=== PATIENT | female | born 1985 | race Caucasian/White ===

== ENCOUNTER 2016-06-21 17:20 | Inpatient (IN) | payer MEDICAID ==
[2016-06-21] MEDS ORDERED: Scopolamine 1.5 MG Transdermal Patch TOP ONE (17:42)
[2016-06-21] MEDS ORDERED: Sodium Chloride 0.9% 10 ML Syringe FLUSH PRN (17:42)
[2016-06-21] MEDS ORDERED: Citric Acid/Sodium Citrate Solution 30 ML Cup PO ONE (17:42)
[2016-06-21] MEDS: Lactated Ringers 1,000 ML IV SCH (18:11)
[2016-06-21] MEDS ORDERED: Citric Acid/Sodium Citrate Solution 30 ML Cup ONE (18:41)
[2016-06-21] MEDS ORDERED: Midazolam 1 MG/ML 2 ML SDV IV ONE (19:00)
[2016-06-21] MEDS ORDERED: Morphine PF 10 MG/10 ML SDV ONE (19:00)
[2016-06-21] MEDS ORDERED: Lactated Ringers 1,000 ML IV ONE (19:00)
[2016-06-21] MEDS ORDERED: ceFAZolin 1 GM Vial IV ONE (19:00)
[2016-06-21] MEDS ORDERED: Bupivacaine 0.75%/D5W 2 ML Amp ISPINAL ONE (19:00)
[2016-06-21] MEDS ORDERED: Ondansetron 4 MG/2 ML SDV IVPUSH ONE (19:00)
[2016-06-21] MEDS ORDERED: Oxytocin 10 Units/1 ML SDV IV ONE (19:00)
[2016-06-21] MEDS ORDERED: ePHEDrine 50 MG/ML SDV IV ONE (19:00)
[2016-06-21] MEDS ORDERED: fentaNYL 100 MCG/2 ML SDV IV ONE (19:00)
[2016-06-21] MEDS ORDERED: Ondansetron 4 MG/2 ML SDV IVPUSH PRN (19:50)
[2016-06-21] MEDS ORDERED: Naloxone 0.4 MG/ML SDV IVPUSH PRN ×3 (20:08→23:30)
[2016-06-21] MEDS ORDERED: ePHEDrine 50 MG/ML SDV IVPUSH PRN (20:08)
[2016-06-21] MEDS ORDERED: diphenhydrAMINE 50 MG/ML SDV IVPUSH PRN ×2 (20:08→23:30)
[2016-06-21] MEDS ORDERED: Ketorolac 15 MG/ML SDV IVPUSH PRN (20:10)
[2016-06-21] MEDS ORDERED: Lactated Ringers 1,000 ML IV SCH (20:15)
[2016-06-21] MEDS ORDERED: Ketorolac 15 MG/ML SDV ONE (23:14)
[2016-06-21] MEDS ORDERED: Morphine 2 MG/ML Syringe IVPUSH PRN (23:30)
[2016-06-21] MEDS ORDERED: Nalbuphine 10 MG/1 ML Vial IVPUSH PRN (23:30)
[2016-06-21] MEDS ORDERED: hydrOXYzine HCl 50 MG/ML SDV IM PRN (23:30)
[2016-06-21] MEDS ORDERED: Naloxone 0.4 MG in Sodium Chloride 0.9% 100 ML IV PRN (23:30)
[2016-06-21] MEDS ORDERED: Promethazine 25 MG/ML SDV IV PRN ×2 (23:30)
[2016-06-21] MEDS ORDERED: Meperidine PF 25 MG/ML Syringe IVPUSH PRN (23:30)
--- NOTE | 2016-06-22 00:45 | OR ---
DATE OF OPERATION: 06/21/2016 OPERATION PERFORMED: Repeat section. INDICATION: Prior section. POSTOPERATIVE DIAGNOSES: 1. Repeat lower uterine segment section. 2. Premature rupture of membranes. WATER QUALITY TESTER: Dr. Cespedes. ANESTHESIA: Regional. PERMIT: Patient accepted the risks and benefits including bleeding, infection, injury, anesthetic risks. She asked us to proceed. PROCEDURE DETAILS: The patient was taken to the OR where the epidural was inserted and found to be adequate. She was draped and prepped in the usual sterile fashion. A Pfannenstiel incision was made along the previous scar, carried to the underlying fascia which was scored in the middle and carried laterally with Coy scissors. The inferior and superior portions were tented with Davi clamps and dissected sharply from the muscle. The muscles were with scalpel and the peritoneum was entered with Metzenbaum scissors. A bladder blade was inserted after stretching and visceral bladder flap of the peritoneum was made. An incision was made around the lower uterine segment, and this was extended laterally by pulling in the caudad cephalad fashion. The baby was delivered atraumatic. Cord was cut and clamped. Cord blood was obtained. The baby was handed to the waiting nurses after suction. After the removal of the placenta, the uterus was exteriorized and cleaned of all blood clots and products of conception. The uterus incision was closed in two layers using #0 Vicryl. There was one stitch of [id number] needed in the middle to achieve adequate hemostasis. After that, the visceral peritoneum was closed with a running #3-0 stitch. The uterus was returned to the maternal abdomen. The gutters were cleaned off blood clots and irrigated thoroughly. The parietal peritoneum was closed in a #2-0 running stitch and the rectus fascia with #0 Vicryl. The subcutaneous tissue was then closed with #3-0 running stitch which was returned to close the skin. Estimated blood loss about 500 mL. The product was a vigorous female infant. She was given 2 g of Ancef before the incision. The count was correct for instruments, laps and sponges x3. /[id number] LESLY/BELLE CHAPARRO
--- NOTE | 2016-06-22 07:34 | PREOP ---
ADMISSION DATE: 06/21/2016 PROCEDURE: Repeat section. ANESTHESIA: Regional. SITES: [facility]. PHYSICIAN OF RECORD: Dr. Chacorta Olmedo and Dr. Addi Gillis. CLINICAL INDICATION: Term intrauterine , previous section. HISTORY OF PRESENT ILLNESS: Kevin Dueñas is a 31-year-old 2, para 1-0-0-1 female, [place], [place] resident, who was seen at [facility] on 06/17/2016, for her obstetrical visit. She is scheduled for repeat section on 06/22/2016, at [facility]. EDC 06/27/2016, placing her at 39+ weeks' gestation. It has been an uncomplicated . Dates are accurate. Satisfactory maternal well being, good behaviors, comfortable dates both by examination clinical dating and ultrasound. MEDICATIONS: Present daily medications include vitamins only. PAST MEDICAL HISTORY: Significant for previous section. She had a previous sinus surgery and wisdom tooth extraction. No other operative procedures, hospitalizations, unusual childhood diseases, major injuries, or fractures. SOCIAL HISTORY: Engaged, [place] resident, previous full-term . Nonsmoker. No alcohol consumption. No illicit drug use. FAMILY HISTORY: Negative for early heart disease, diabetes mellitus, or inheritable cancers. REVIEW OF SYSTEMS: Feeling generally well. Sleep has been a little interrupted, intermittent heart. Mild nausea, bowels have been, good bladder has been fine, and baby has been active. OBJECTIVE: VITAL SIGNS: Stable and comfortable. HEENT: Reveal funduscopic benign. Bright TMs. Clear nasal discharge. Mouth and oropharynx are clear. CHEST: Clear in all lung rosado. HEART: Regular without ectopy or murmur. BREAST: deferred. ABDOMEN: Term gravid, uterus 38 cm vertex presentation. heart tones 134 to 156. Vertex presentation. PELVIC: Deferred. EXTREMITIES: Well perfused. Minimal edema. LABORATORY STUDIES: CBC, type and screen morning of admission. ASSESSMENT: 1. Preop examination for upcoming repeat section. No contraindication. 2. Previous section. 3. Status post sinus surgery. Status post wisdom tooth extraction. 4. Remote smoker. PLAN: Risks, benefits, and expectations were discussed at length. No contraindications, suitable candidate. /[id number] VANNA/BELLE
[2016-06-22] MEDS: Lactated Ringers 1,000 ML IV SCH (08:24)
--- NOTE | 2016-06-22 09:49 | PCM.PNPP ---
- General Info Date of Service: 06/22/16 Functional Status: Reports: pain controlled - Review of Systems General: Reports: No Symptoms HEENT: Reports: no symptoms Pulmonary: Reports: no symptoms Cardiovascular: Reports: No Symptoms Gastrointestinal: Reports: No symptoms Genitourinary: Reports: no symptoms Musculoskeletal: Reports: no symptoms Skin: Reports: no symptoms Neurological: Reports: No Symptoms Psychiatric: Reports: no symptoms - General Info Date of Service: 06/22/16 - Patient Data Vital Signs - most recent: Last Vital Signs Temp 97.8 F 06/22/16 08:35 Pulse 77 06/22/16 08:35 Resp 20 06/22/16 08:35 BP 115/68 06/22/16 08:35 Pulse Ox 100 06/22/16 08:35 Weight - most recent: 107.955 kg I&O - last 24 hours: Intake & Output 06/21/16 06/22/16 06/22/16 22:59 06:59 14:59 Intake Total 452 022 6290 Output Total 450 250 Balance -214 536 0105 Lab Results - last 24 hrs: Laboratory Results - last 24 hr 06/21/16 06/21/16 06/22/16 Range/Units 18:25 18:25 06:52 WBC 9.1 10.4 (4.5-12.0) X10-3/uL RBC 4.19 3.85 (3.23-5.20) x10(6)uL Hgb 11.6 10.5 L (11.5-15.5) g/dL Hct 34.7 32.4 (30.0-51.3) % MCV 82.7 84.3 (80-96) fL MCH 27.8 27.3 L (27.7-33.6) pg MCHC 33.6 32.4 (32.2-35.4) g/dL RDW 13.9 14.0 (11.5-15.5) % Plt Count 160 135 (125-369) X10(3)uL MPV 9.6 9.2 (7.4-10.4) fL Neut % (Auto) 71.3 80.1 (46-82) % Lymph % (Auto) 20.4 13.1 (13-37) % Ida % (Auto) 7.1 6.1 (4-12) % Eos % (Auto) 1 1 (1.0-5.0) % Baso % (Auto) 0 0 (0-2) % Neut # (Auto) 6.5 8.2 (1.6-8.3) # Lymph # (Auto) 1.9 1.4 (0.6-5.0) # Ida # (Auto) 0.6 0.6 (0.0-1.3) # Eos # (Auto) 0.1 0.1 (0.0-0.8) # Baso # (Auto) 0.0 0.0 (0.0-0.2) # Blood Type O POSITIVE Gel Antibody Screen Negative Med Orders - Current: Current Medications Hydrocodone Bitart/Acetaminophen ([place] 325-5 Mg) 1 tab PO Q6H PRN PRN Reason: Breakthrough Pain Diphenhydramine HCl (Benadryl) 25 mg IVPUSH Q6H PRN PRN Reason: Itching or Nausea Last Admin: 06/21/16 22:50 Dose: 25 mg Diphenhydramine HCl (Benadryl) 25 mg IVPUSH ASDIRECTED PRN PRN Reason: PRURITUS Last Admin: 06/21/16 23:43 Dose: 25 mg Ephedrine Sulfate (Ephedrine Sulfate) 5 mg IVPUSH ASDIRECTED PRN PRN Reason: Other Hydroxyzine HCl (Vistaril) 25 - 50 mg IM Q4H PRN PRN Reason: N/V Lactated Ringer's (Ringers, Lactated) 1,000 mls @ 0 mls/hr IV ASDIRECTED MIRIAN PRN Reason: KVO Last Admin: 06/22/16 08:24 Dose: 30 mls/hr Naloxone HCl 0.4 mg/ Sodium (Chloride) 101 mls @ 25 mls/hr IV ASDIRECTED PRN PRN Reason: RESPIRATORY RATE Ibuprofen (Motrin) 600 mg PO Q6H MIRIAN Ketorolac Tromethamine (Toradol) 15 mg IVPUSH Q6H PRN PRN Reason: BREAKTHRU PAIN Stop: 06/26/16 20:09 Last Admin: 06/21/16 23:36 Dose: 15 mg Miscellaneous Information (Remove Patch) 1 ea TRDERM ONETIME ONE Stop: 06/22/16 18:31 Morphine Sulfate (Morphine) 2 mg IVPUSH Q1H PRN PRN Reason: BREAKTHRU PAIN Nalbuphine HCl (Nubain) 10 mg IVPUSH Q1H PRN PRN Reason: PRURITUS Naloxone HCl (Narcan) 0.1 mg IVPUSH ASDIRECTED PRN PRN Reason: RESPIRATORY RATE Ondansetron HCl (Zofran) 4 mg IVPUSH Q6H PRN PRN Reason: NAUSEA/VOMITING Promethazine HCl (Phenergan) 6.25 mg IV Q4H PRN PRN Reason: N/V Promethazine HCl (Phenergan) 12.5 mg IV Q4H PRN PRN Reason: N/V Sodium Chloride (Saline Flush) 10 ml FLUSH ASDIRECTED PRN PRN Reason: Keep Vein Open Discontinued Medications Citric Acid/Sodium Citrate (Bicitra Solution) 30 ml PO ONETIME ONE Stop: 06/21/16 17:43 Last Admin: 06/21/16 18:51 Dose: 30 ml Citric Acid/Sodium Citrate (Bicitra Solution) Confirm Administered Dose 30 ml .ROUTE .STK-MED ONE Stop: 06/21/16 18:42 Last Admin: 06/21/16 18:44 Dose: Not Given Lactated Ringer's (Ringers, Lactated) 1,000 mls @ 250 mls/hr IV ASDIRECTED MIRIAN Last Admin: 06/22/16 00:05 Dose: 250 mls/hr Ketorolac Tromethamine (Toradol) Confirm Administered Dose 15 mg .ROUTE .STK- MED ONE Stop: 06/21/16 23:15 Last Admin: 06/22/16 00:04 Dose: Not Given Naloxone HCl (Narcan) 0.1 mg IVPUSH ASDIRECTED PRN PRN Reason: Respiratory Depression Stop: 06/21/16 20:09 Scopolamine (Transderm-Scop) 1.5 mg TOP ONETIME ONE Stop: 06/21/16 17:43 Last Admin: 06/21/16 18:51 Dose: 1.5 mg - Interaction Infant Disposition, : at Bedside Support Person: Significant Other - Recovery Exam Fundal Tone: Firm Fundal Level: 1 Fingerbreadths Below Umbilicus Fundal Placement: Midline Lochia Amount: Small Lochia Color: Rubra/Red Perineum Description: Intact, Minimal Bruising/Swelling Episiotomy/Laceration: None Bladder Status: Indwelling Catheter in Place Urinary Elimination: Indwelling Catheter - Exam General: alert, oriented HEENT: Pupils equal Neck: supple Lungs: Clear to auscultation, Normal respiratory effort Cardiovascular: Regular Rate, Regular Rhythm Abdomen: bowel sounds present, soft, no tenderness, no distension Extremities: no edema Skin: warm, dry, intact Wound/Incisions: healing well Neurological: no new focal deficit Psy/Mental Status: alert, normal affect, normal mood - Problem List & Annotations (1) delivery delivered SNOMED Code(s): 478712550 Code(s): O82 - ENCOUNTER FOR DELIVERY WITHOUT INDICATION Status: Acute Current Visit: Yes - Problem List Review Problem List Initiated/Reviewed/Updated: Yes - My Orders Last 24 Hours: My Active Orders 06/21/16 17:42 Patient Status [ADT] Routine RT Incentive Spirometry [RC] PER UNIT ROUTINE Sodium Chloride 0.9% [Saline Flush] 10 ml FLUSH ASDIRECTED PRN Peripheral IV Insertion Adult [OM.PC] Routine Schedule Procedure [COMM] Per Unit Routine Resuscitation Status Routine 06/21/16 18:10 Lactated Ringers [Ringers, Lactated] 1,000 ml IV ASDIRECTED 06/21/16 20:08 Communication Order [RC] Per Unit Routine Communication Order [RC] Per Unit Routine Communication Order [RC] Per Unit Routine Intake and Output [RC] 06,14,22 diphenhydrAMINE [Benadryl] 25 mg IVPUSH Q6H PRN ePHEDrine [ePHEDrine Sulfate] 5 mg IVPUSH ASDIRECTED PRN 06/22/16 09:46 Urinary Catheter Removal [RC] Per Unit Routine Acetaminophen/HYDROcodone [[place] 325-5 MG] 1 tab PO Q6H PRN Convert IV to Saline Lock [OM.PC] Stat 06/22/16 10:00 Ibuprofen [Motrin] 600 mg PO Q6H 06/22/16 18:30 Remove Patch 1 ea TRDERM ONETIME ONE 06/22/16 Lunch Regular Diet [DIET] - Plan Plan:: Heplock IV. DC Floey.Ambulate.Regular diet as tolerated
[2016-06-22] MEDS: Ibuprofen 600 MG Tab PO SCH ×3 (10:23→21:19)
[2016-06-22] MEDS: diphenhydrAMINE 50 MG Cap PO PRN ×2 (12:50→21:20)
[2016-06-22] MEDS: Acetaminophen/HYDROcodone 325-5 MG Tab PO PRN ×2 (16:01→22:00)
[2016-06-22] MEDS ORDERED: Remove SCOP Patch TRDERM ONE (18:30)
[2016-06-23] MEDS: Ibuprofen 600 MG Tab PO SCH ×2 (04:10→10:41)
[2016-06-23] MEDS: Acetaminophen/HYDROcodone 325-5 MG Tab PO PRN ×2 (04:14→10:47)
[2016-06-23 08:23] VITALS: BP 126/82
--- NOTE | 2016-06-23 08:32 | PCM.PNPP ---
- General Info Date of Service: 06/23/16 Functional Status: Reports: pain controlled, tolerating diet - Review of Systems General: Reports: No Symptoms HEENT: Reports: no symptoms Pulmonary: Reports: no symptoms Gastrointestinal: Reports: Constipation - General Info Date of Service: 06/23/16 - Patient Data Vital Signs - most recent: Last Vital Signs Temp 97.6 F 06/23/16 08:00 Pulse 77 06/23/16 08:00 Resp 20 06/23/16 08:00 BP 126/82 06/23/16 08:00 Pulse Ox 99 06/23/16 08:00 Weight - most recent: 107.955 kg I&O - last 24 hours: Intake & Output 06/22/16 06/23/16 06/23/16 22:59 06:59 14:59 Intake Total 1000 Output Total 500 2100 Balance 500 -2100 Med Orders - Current: Current Medications Hydrocodone Bitart/Acetaminophen ([place] 325-5 Mg) 1 tab PO Q6H PRN PRN Reason: Breakthrough Pain Last Admin: 06/23/16 04:14 Dose: 1 tab Diphenhydramine HCl (Benadryl) 50 mg PO Q6H PRN PRN Reason: Itching Last Admin: 06/22/16 21:20 Dose: 50 mg Ephedrine Sulfate (Ephedrine Sulfate) 5 mg IVPUSH ASDIRECTED PRN PRN Reason: Other Hydroxyzine HCl (Vistaril) 25 - 50 mg IM Q4H PRN PRN Reason: N/V Lactated Ringer's (Ringers, Lactated) 1,000 mls @ 0 mls/hr IV ASDIRECTED [facility] PRN Reason: KVO Last Admin: 06/22/16 08:24 Dose: 30 mls/hr Naloxone HCl 0.4 mg/ Sodium (Chloride) 101 mls @ 25 mls/hr IV ASDIRECTED PRN PRN Reason: RESPIRATORY RATE Ibuprofen (Motrin) 600 mg PO Q6H [facility] Last Admin: 06/23/16 04:10 Dose: 600 mg Morphine Sulfate (Morphine) 2 mg IVPUSH Q1H PRN PRN Reason: BREAKTHRU PAIN Nalbuphine HCl (Nubain) 10 mg IVPUSH Q1H PRN PRN Reason: PRURITUS Naloxone HCl (Narcan) 0.1 mg IVPUSH ASDIRECTED PRN PRN Reason: RESPIRATORY RATE Ondansetron HCl (Zofran) 4 mg IVPUSH Q6H PRN PRN Reason: NAUSEA/VOMITING Promethazine HCl (Phenergan) 6.25 mg IV Q4H PRN PRN Reason: N/V Promethazine HCl (Phenergan) 12.5 mg IV Q4H PRN PRN Reason: N/V Sodium Chloride (Saline Flush) 10 ml FLUSH ASDIRECTED PRN PRN Reason: Keep Vein Open Discontinued Medications Citric Acid/Sodium Citrate (Bicitra Solution) 30 ml PO ONETIME ONE Stop: 06/21/16 17:43 Last Admin: 06/21/16 18:51 Dose: 30 ml Citric Acid/Sodium Citrate (Bicitra Solution) Confirm Administered Dose 30 ml .ROUTE .STK-MED ONE Stop: 06/21/16 18:42 Last Admin: 06/21/16 18:44 Dose: Not Given Diphenhydramine HCl (Benadryl) 25 mg IVPUSH Q6H PRN PRN Reason: Itching or Nausea Last Admin: 06/21/16 22:50 Dose: 25 mg Diphenhydramine HCl (Benadryl) 25 mg IVPUSH ASDIRECTED PRN PRN Reason: PRURITUS Last Admin: 06/21/16 23:43 Dose: 25 mg Lactated Ringer's (Ringers, Lactated) 1,000 mls @ 250 mls/hr IV ASDIRECTED MIRIAN Last Admin: 06/22/16 00:05 Dose: 250 mls/hr Ketorolac Tromethamine (Toradol) Confirm Administered Dose 15 mg .ROUTE .STK- MED ONE Stop: 06/21/16 23:15 Last Admin: 06/22/16 00:04 Dose: Not Given Ketorolac Tromethamine (Toradol) 15 mg IVPUSH Q6H PRN PRN Reason: BREAKTHRU PAIN Stop: 06/26/16 20:09 Last Admin: 06/21/16 23:36 Dose: 15 mg Miscellaneous Information (Remove Patch) 1 ea TRDERM ONETIME ONE Stop: 06/22/16 18:31 Last Admin: 06/22/16 18:20 Dose: 1 ea Naloxone HCl (Narcan) 0.1 mg IVPUSH ASDIRECTED PRN PRN Reason: Respiratory Depression Stop: 06/21/16 20:09 Scopolamine (Transderm-Scop) 1.5 mg TOP ONETIME ONE Stop: 06/21/16 17:43 Last Admin: 06/21/16 18:51 Dose: 1.5 mg - Interaction Disposition, : [place] at Bedside Support Person: Significant Other - Recovery Exam Fundal Tone: Firm Fundal Level: 1 Fingerbreadths Below Umbilicus Fundal Placement: Midline Lochia Amount: Small Lochia Color: Rubra/Red Perineum Description: Intact, Minimal Bruising/Swelling Episiotomy/Laceration: None Bladder Status: Voiding Urinary Elimination: Indwelling Catheter - Exam General: alert HEENT: Pupils equal Lungs: Clear to auscultation Abdomen: bowel sounds present Extremities: no edema Wound/Incisions: healing well, dressing dry and intact Neurological: no new focal deficit Psy/Mental Status: alert, normal affect - Problem List & Annotations (1) delivery delivered SNOMED Code(s): 071232515 Code(s): O82 - ENCOUNTER FOR DELIVERY WITHOUT INDICATION Status: Acute Current Visit: Yes (2) Constipation SNOMED Code(s): 73856933 Code(s): K59.00 - CONSTIPATION, UNSPECIFIED Status: Acute Current Visit: Yes - Problem List Review Problem List Initiated/Reviewed/Updated: Yes - My Orders Last 24 Hours: My Active Orders 06/22/16 09:46 Acetaminophen/HYDROcodone [[place] 325-5 MG] 1 tab PO Q6H PRN Convert IV to Saline Lock [OM.PC] Stat 06/22/16 10:00 Ibuprofen [Motrin] 600 mg PO Q6H 06/22/16 12:09 diphenhydrAMINE [Benadryl] 50 mg PO Q6H PRN 06/22/16 Lunch Regular Diet [DIET] - Assessment Assessment:: DC home today. - Plan Plan:: Heplock IV. DC Floey.Ambulate.Regular diet as tolerated
--- NOTE | 2016-06-23 09:31 | DISCH ---
DISCHARGE DATE: 06/23/2016 REASON FOR ADMISSION: Premature rupture of membranes. REASON FOR DISCHARGE: 1. Status post lower uterine segment section. 2. Constipation. BRIEF HISTORY AND HOSPITAL COURSE: This is a 31-year-old female who was admitted on the evening for ruptured membranes in onset of labor. She is for repeat , earlier scheduled for the , but was done on by myself and Dr. Cespedes. Postop, she did very well with good urine output. She did complain of some constipation before she left. She has to go a day earlier. I discharged her home on MiraLAX to take 17 g daily p.r.n. and hydrocodone 1 tablet every 6 hours p.r.n. 10 tablets. We will see Dr. Vang in 6 weeks. I spent more than 35 minutes in the discharge of the patient. /[id number] LESLY/BELLE
== END 2016-06-23 13:13 | disposition home or self-care (01) | DRG 540 ==
LOC: FB.OB 17:20
PROVIDERS: ADMIT Family Medicine; ATTEND Family Medicine
PROC: 10D00Z1 Extraction of Products of Conception, Low, Open Approach (ICD-10-PCS; principal; 2016-06-21)
DX: O42.02 Full-term premature rupture of membranes, onset of labor within 24 hours of rupture (principal); O34.211 Maternal care for low transverse scar from previous cesarean delivery; N85.8 Other specified noninflammatory disorders of uterus; Z3A.39 39 weeks gestation of pregnancy; Z37.0 Single live birth; O90.89 Other complications of the puerperium, not elsewhere classified; K59.00 Constipation, unspecified
CPT/HCPCS: 36415; 85025; 86850; 86900; 86901; 88307; 94150; A9270-GY; J0690; J1200; J1885; J2250; J2270; J2405; J2590; J3010; J7120

== ENCOUNTER 2019-06-01 18:49 | Emergency (ER) | payer MEDICAID ==
[2019-06-01] MEDS ORDERED: Morphine 2 MG/ML Syringe IM ONE (19:16)
[2019-06-01 20:19] VITALS: BP 127/56; PULSE 120
[2019-06-01] MEDS ORDERED: HYDROmorphone 2 MG/ML SDV IVPUSH ONE (20:32)
[2019-06-01] MEDS ORDERED: Iopamidol 755 Mg/ML 100 ML Bottle IV ONE (20:43)
[2019-06-01] MEDS ORDERED: Ondansetron 4 MG/2 ML SDV IVPUSH ONE ×2 (21:07→21:49)
--- NOTE | 2019-06-01 22:39 | EDM.PDOC ---
ED HPI GENERAL MEDICAL PROBLEM - General Chief Complaint: [employer] Problem Stated Complaint: TUBAL Time Seen by Provider: 06/01/19 19:05 Source of Information: Reports: Patient History Limitations: Reports: No Limitations - History of Present Illness INITIAL COMMENTS - FREE TEXT/NARRATIVE: Patient presented to the ED because of abdominal pain. She is at 7 weeks age of gestation. She was diagnosed with ectopic 3 days ago and was given methotrexate. - Related Data Allergies Allergy/AdvReac Type Severity Reaction Status Date / Time No Known Allergies Allergy Verified 06/21/16 19:56 Home Meds: Home Meds Pnv No.95/Ferrous Fum/Folic AC [ Tablet] 1 tab PO BID 09/16/14 [History] Acetaminophen/HYDROcodone [[place] 325-5 MG] 1 tab PO Q6H PRN #10 tablet 06/23/16 [Rx] Polyethylene Glycol 3350 [MiraLAX] 17 gm PO DAILY PRN #30 packet 06/23/16 [Rx] Past Medical History HEENT History: Reports: Sinusitis Cardiovascular History: Reports: Heart Murmur Respiratory History: Reports: Asthma Other Respiratory History: exercised induced asthma [employer] History: Reports: , Spontaneous Other [employer] History: Musculoskeletal History: Reports: Other (See Below) Other Musculoskeletal History: fracxture nose, r hand, r foot x2 Psychiatric History: Reports: Bipolar, Depression Other Psychiatric History: on zoloft 150 mg - Infectious Disease History Infectious Disease History: Reports: Chicken Pox - Past Surgical History HEENT Surgical History: Reports: Tonsillectomy Other HEENT Surgeries/Procedures: SINUS SURGERY Respiratory Surgical History: Reports: None Female Surgical History: Reports: Section, Other (See Below) Other Female Surgeries/Procedures: left fallopian tube removed 7 months ago, dx with tubal . Social & Family History - Family History Family Medical History: Noncontributory Cardiac: Reports: Hypertension, [place] Respiratory: Reports: Asthma Other Respiratory Family Hisory: grandpa had emphysema OBGYN: Reports: Other OBGYN Family History: mother and sister had miscarriages Psychiatric: Reports: ADHD, Depression, Psych Hospitalization(s) Oncologic: Reports: Renal - Caffeine Use Caffeine Use: Reports: None ED ROS GENERAL - Review of Systems Review Of Systems: See Below Constitutional: Reports: No Symptoms HEENT: Reports: No Symptoms Respiratory: Reports: No Symptoms Cardiovascular: Reports: No Symptoms Endocrine: Reports: No Symptoms GI/Abdominal: Reports: Abdominal Pain, Nausea, Vomiting ED EXAM - Physical Exam Exam: See Below Exam Limited By: No Limitations General Appearance: Alert, No Apparent Distress Ears: Normal External Exam, Normal Canal Nose: Normal Inspection, Normal Mucosa Throat/Mouth: Normal Inspection, Normal Lips, Normal Teeth Head: Atraumatic, Normocephalic Neck: Normal Inspection, Supple, Non-Tender Respiratory/Chest: No Respiratory Distress, Lungs Clear, Normal Breath Sounds, No Accessory Muscle Use Cardiovascular: Normal Peripheral Pulses, Regular Rate, Rhythm, No Edema, No Gallop GI/Abdominal Exam: Normal Bowel Sounds, Soft, Other (tenderness over LLQ and RLQ ). No: Guarding Back Exam: Normal Inspection, Full Range of Motion Extremities: Normal Inspection, Normal Range of Motion, Non-Tender Neurological: Alert, Oriented, CN II-XII Intact Course - Vital Signs Text/Narrative:: Labs/Abd and pelvic CT was discussed with patient and verbalized full understanding NS 1 L bolus zofran 4 mg IV x1 morphine 4 mg IV x1 dilaudid 2 mg IV d1 She got upset when I told her that the Ct result is suggestive of a ruptured ectopic but it needs to be confirmed by ultrasound. i told her that we don't have an ecg technician for tonight and she need to go to by an ambulance. While waiting for transfer by an ambulance, I told her that I will also talk to her OB before heading there. She suddenly let her mom push her on a wheel chair and left AMA. Last Recorded V/S: Last Vital Signs Temp 36.8 C 06/01/19 20:10 Pulse 120 H 06/01/19 20:10 Resp 18 06/01/19 20:10 BP 127/56 L 06/01/19 20:10 Pulse Ox 99 06/01/19 20:10 - Orders/Labs/Meds Orders: Active Orders 24 hr Category Date Time Status Abdomen Pelvis w Cont [CT] Stat Exams 06/01/19 20:22 Taken UA W/MICROSCOPIC [URIN] Stat Lab 06/01/19 20:22 Ordered Labs: Laboratory Tests 06/01/19 06/01/19 06/01/19 Range/Units 19:25 19:25 19:25 WBC 9.9 (4.5-12.0) X10-3/uL RBC 4.61 (3.23-5.20) x10(6)uL Hgb 13.4 (11.5-15.5) g/dL Hct 39.6 (30.0-51.3) % MCV 85.9 (80-96) fL MCH 29.1 (27.7-33.6) pg MCHC 33.8 (32.2-35.4) g/dL RDW 12.7 (11.5-15.5) % Plt Count 258 (125-369) X10(3)uL MPV 9.1 (7.4-10.4) fL Neut % (Auto) 69.2 (46-82) % Lymph % (Auto) 25.7 (13-37) % [place] % (Auto) 4.3 (4-12) % Eos % (Auto) 1 (1.0-5.0) % Baso % (Auto) 0 (0-2) % Neut # (Auto) 7.0 (1.6-8.3) # Lymph # (Auto) 2.5 (0.6-5.0) # [place] # (Auto) 0.4 (0.0-1.3) # Eos # (Auto) 0.0 (0.0-0.8) # Baso # (Auto) 0.0 (0.0-0.2) # Sodium 142 (135-145) mmol/L Potassium 3.8 (3.5-5.3) mmol/L Chloride 103 (100-110) mmol/L Carbon Dioxide 29 (21-32) mmol/L BUN 9 (7-18) mg/dL Creatinine 1.0 (0.55-1.02) mg/dL Est Cr Clr Drug Dosing TNP Estimated GFR (MDRD) > 60 (>60) BUN/Creatinine Ratio 9.0 (9-20) Glucose 115 (80-116) mg/dL Calcium 9.5 (8.6-10.2) mg/dL Total Bilirubin 0.9 (0.1-1.3) mg/dL AST 27 H (5-25) IU/L ALT 57 H (12-36) U/L Alkaline Phosphatase 77 (56-112) IU/L Total Protein 7.8 (6.0-8.0) g/dL Albumin 4.5 (3.5-5.2) g/dL Globulin 3.3 g/dL Albumin/Globulin Ratio 1.4 Amylase 30 (25-115) U/L Lipase (73-393) U/L HCG, Quant 272 (<5) mIU/mL 06/01/19 Range/Units 19:25 WBC (4.5-12.0) X10-3/uL RBC (3.23-5.20) x10(6)uL Hgb (11.5-15.5) g/dL Hct (30.0-51.3) % MCV (80-96) fL MCH (27.7-33.6) pg MCHC (32.2-35.4) g/dL RDW (11.5-15.5) % Plt Count (125-369) X10(3)uL MPV (7.4-10.4) fL Neut % (Auto) (46-82) % Lymph % (Auto) (13-37) % [place] % (Auto) (4-12) % Eos % (Auto) (1.0-5.0) % Baso % (Auto) (0-2) % Neut # (Auto) (1.6-8.3) # Lymph # (Auto) (0.6-5.0) # [place] # (Auto) (0.0-1.3) # Eos # (Auto) (0.0-0.8) # Baso # (Auto) (0.0-0.2) # Sodium (135-145) mmol/L Potassium (3.5-5.3) mmol/L Chloride (100-110) mmol/L Carbon Dioxide (21-32) mmol/L BUN (7-18) mg/dL Creatinine (0.55-1.02) mg/dL Est Cr Clr Drug Dosing Estimated GFR (MDRD) (>60) BUN/Creatinine Ratio (9-20) Glucose (80-116) mg/dL Calcium (8.6-10.2) mg/dL Total Bilirubin (0.1-1.3) mg/dL AST (5-25) IU/L ALT (12-36) U/L Alkaline Phosphatase (56-112) IU/L Total Protein (6.0-8.0) g/dL Albumin (3.5-5.2) g/dL Globulin g/dL Albumin/Globulin Ratio Amylase (25-115) U/L Lipase 67 L (73-393) U/L HCG, Quant (<5) mIU/mL Meds: Medications Discontinued Medications Generic Name Dose Route Start Last Admin Trade Name Kirkq PRN Reason Stop Dose Admin Hydromorphone HCl 2 mg 06/01/19 20:32 06/01/19 20:41 Dilaudid IVPUSH 06/01/19 20:33 2 mg ONETIME ONE Administration Iopamidol 100 ml 06/01/19 20:43 06/01/19 20:56 Isovue-370 (76%) IV 06/01/19 20:44 100 ml . DIRECTED ONE Administration Morphine Sulfate 4 mg 06/01/19 19:16 06/01/19 19:36 Morphine IM 06/01/19 19:17 4 mg ONETIME ONE Administration Ondansetron HCl 4 mg 06/01/19 21:07 06/01/19 21:15 Zofran IVPUSH 06/01/19 21:08 4 mg ONETIME ONE Administration Ondansetron HCl 4 mg 06/01/19 21:49 06/01/19 21:59 Zofran IVPUSH 06/01/19 21:50 Not Given ONETIME ONE Departure - Departure Time of Disposition: 21:40 Disposition: Against Medical Advice 07 Condition: Good Clinical Impression: Ectopic - Discharge Information Referrals: PCP,None [Primary Care Provider] - Forms: ED Department Discharge Sepsis Event Note - Evaluation Sepsis Screening Result: No Definite Risk - Focused Exam Vital Signs: Vital Signs Temp Pulse Resp BP Pulse Ox 06/01/19 20:10 36.8 C 120 H 18 127/56 L 99 06/01/19 19:35 118 H 18 148/95 H 99 06/01/19 18:55 36.6 C 114 H 18 153/98 H 100 Date Exam was Performed: 06/01/19 Time Exam was Performed: 22:32 - My Orders Last 24 Hours: My Active Orders 06/01/19 20:22 Abdomen Pelvis w Cont [CT] Stat UA W/MICROSCOPIC [URIN] Stat - Assessment/Plan Last 24 Hours: My Active Orders 06/01/19 20:22 Abdomen Pelvis w Cont [CT] Stat UA W/MICROSCOPIC [URIN] Stat
== END 2019-06-01 21:40 | disposition left against medical advice (07) ==
LOC: FB.ED 18:49
DX: O00.91 Unspecified ectopic pregnancy with intrauterine pregnancy (principal); O99.511 Diseases of the respiratory system complicating pregnancy, first trimester; J45.909 Unspecified asthma, uncomplicated; Z3A.01 Less than 8 weeks gestation of pregnancy
CPT/HCPCS: 36415; 74177; 80053; 82150; 83690; 84702; 85025; 96372; 96374; 96375; 99284; J1170; J2270; J2405; Q9967

== ENCOUNTER 2019-09-06 09:26 | Emergency (ER) | payer MEDICAID ==
--- NOTE | 2019-09-06 10:27 | EDM.PDOCBH ---
ED HPI GENERAL MEDICAL PROBLEM - General Chief Complaint: Behavioral/Psych Time Seen by Provider: 09/06/19 09:30 Source of Information: Reports: Patient, Family History Limitations: Reports: No Limitations - History of Present Illness INITIAL COMMENTS - FREE TEXT/NARRATIVE: Patient presented to the ED because of suicidal thoughts and ideation. She she has a long standing history drug and alcohol abuse. She drinks 15 bottles of beer a day and also phenteramine and amphetamine. When she goes into withdrawal she becomes sleepy,anxious, depressed and have suicidal thoughts. This morning, her plan.Denies having auditory hallucinations but is to shoot herself - Related Data Allergies Allergy/AdvReac Type Severity Reaction Status Date / Time No Known Allergies Allergy Verified 06/21/16 19:56 Home Meds: Home Meds Pnv No.95/Ferrous Fum/Folic AC [ Tablet] 1 tab PO BID 09/16/14 [History] Acetaminophen/HYDROcodone [[place] 325-5 MG] 1 tab PO Q6H PRN #10 tablet 06/23/16 [Rx] Polyethylene Glycol 3350 [MiraLAX] 17 gm PO DAILY PRN #30 packet 06/23/16 [Rx] Past Medical History HEENT History: Reports: Sinusitis Cardiovascular History: Reports: Heart Murmur Respiratory History: Reports: Asthma Other Respiratory History: exercised induced asthma [employer] COMPOSITES History: Reports: , Spontaneous Other [employer] COMPOSITES History: Musculoskeletal History: Reports: Other (See Below) Other Musculoskeletal History: fracxture nose, r hand, r foot x2 Psychiatric History: Reports: Bipolar, Depression Other Psychiatric History: on zoloft 150 mg - Infectious Disease History Infectious Disease History: Reports: Chicken Pox - Past Surgical History HEENT Surgical History: Reports: Tonsillectomy Other HEENT Surgeries/Procedures: SINUS SURGERY Respiratory Surgical History: Reports: None Female Surgical History: Reports: Section, Other (See Below) Other Female Surgeries/Procedures: left fallopian tube removed 7 months ago, dx with tubal . Social & Family History - Family History Family Medical History: Noncontributory Cardiac: Reports: Hypertension, [place] Respiratory: Reports: Asthma Other Respiratory Family Hisory: grandpa had emphysema OBGYN: Reports: Other OBGYN Family History: mother and sister had miscarriages Psychiatric: Reports: ADHD, Depression, Psych Hospitalization(s) Oncologic: Reports: Renal - Caffeine Use Caffeine Use: Reports: None ED ROS GENERAL - Review of Systems Review Of Systems: See Below Constitutional: Reports: No Symptoms HEENT: Reports: No Symptoms Respiratory: Reports: No Symptoms Cardiovascular: Reports: No Symptoms Endocrine: Reports: No Symptoms GI/Abdominal: Reports: No Symptoms : Reports: No Symptoms Musculoskeletal: Reports: No Symptoms Skin: Reports: No Symptoms Neurological: Reports: No Symptoms Psychiatric: Reports: Anxiety, Confusion, Depression, Suicidal Ideation Hematologic/Lymphatic: Reports: No Symptoms Immunologic: Reports: No Symptoms ED EXAM, BEHAVIORAL HEALTH - Physical Exam Exam: See Below Exam Limited By: No Limitations General Appearance: Alert, No Apparent Distress Eye Exam: Bilateral Eye: PERRL Ears: Normal External Exam, Normal Canal Nose: Normal Inspection, Normal Mucosa Throat/Mouth: Normal Inspection, Normal Lips, Normal Teeth Head: Atraumatic, Normocephalic Neck: Normal Inspection, Supple, Non-Tender Respiratory/Chest: No Respiratory Distress, Lungs Clear, Normal Breath Sounds Cardiovascular: Normal Peripheral Pulses, Regular Rate, Rhythm, No Edema GI/Abdominal: Normal Bowel Sounds, Soft, Non-Tender, No Organomegaly Extremities: Normal Inspection Neurological: Alert, Normal Mood/Affect, CN II-XII Intact, Normal Cognition Psychiatric: Alert, Normal Cognition, Normal Mood, Oriented, Depressed Mood, Flat Affect, Tearful Skin Exam: Warm COURSE, BEHAVIORAL HEALTH COMP - Course Vital Signs: Last Vital Signs Temp 36.6 C 09/06/19 11:22 Pulse 73 09/06/19 11:22 Resp 16 09/06/19 11:22 BP 149/103 H 09/06/19 11:22 Pulse Ox 99 09/06/19 11:22 Labs reviewed and discussed with patient and verbalized full understanding. Debbie Arevalo evaluated Kevin Dueñas and recommended inpatient psych treatment. She is medically stable for treatment Orders, Labs, Meds: Active Orders 24 hr Category Date Time Status CORONAVIRUS COVID-19 WENCESLAO [MOLEC] Stat Lab 09/06/19 10:29 Received Laboratory Tests 09/06/19 09/06/19 09/06/19 Range/Units 10:18 10:18 10:18 WBC (4.5-12.0) X10-3/uL RBC (3.23-5.20) x10(6)uL Hgb (11.5-15.5) g/dL Hct (30.0-51.3) % MCV (80-96) fL MCH (27.7-33.6) pg MCHC (32.2-35.4) g/dL RDW (11.5-15.5) % Plt Count (125-369) X10(3)uL MPV (7.4-10.4) fL Neut % (Auto) (46-82) % Lymph % (Auto) (13-37) % [place] % (Auto) (4-12) % Eos % (Auto) (1.0-5.0) % Baso % (Auto) (0-2) % Neut # (Auto) (1.6-8.3) # Lymph # (Auto) (0.6-5.0) # [place] # (Auto) (0.0-1.3) # Eos # (Auto) (0.0-0.8) # Baso # (Auto) (0.0-0.2) # Sodium (135-145) mmol/L Potassium (3.5-5.3) mmol/L Chloride (100-110) mmol/L Carbon Dioxide (21-32) mmol/L BUN (7-18) mg/dL Creatinine (0.55-1.02) mg/dL Est Cr Clr Drug Dosing Estimated GFR (MDRD) (>60) BUN/Creatinine Ratio (9-20) Glucose (80-116) mg/dL Calcium (8.6-10.2) mg/dL Total Bilirubin (0.1-1.3) mg/dL AST (5-25) IU/L ALT (12-36) U/L Alkaline Phosphatase (56-112) IU/L Total Protein (6.0-8.0) g/dL Albumin (3.5-5.2) g/dL Globulin g/dL Albumin/Globulin Ratio Urine Color Yellow (YELLOW) Urine Appearance Clear (CLEAR) Urine pH 6.0 (5.0-6.5) Ur Specific [place] 1.005 L (1.010-1.025) Urine Protein Negative (NEGATIVE) mg/dL Urine Glucose (UA) Normal (NORMAL) mg/dL Urine Ketones Negative (NEGATIVE) mg/dL Urine Occult Blood Negative (NEGATIVE) Urine Nitrite Negative (NEGATIVE) Urine Bilirubin Negative (NEGATIVE) Urine Urobilinogen Normal (NEGATIVE) mg/dL Ur Leukocyte Esterase Negative (NEGATIVE) Urine HCG, Qual Negative (NEGATIVE) Urine Opiates Screen Negative (NEGATIVE) Ur Oxycodone Screen Negative (NEGATIVE) Ur Propoxyphene Screen Negative (NEGATIVE) Ur Barbituates Screen Negative (NEGATIVE) Ur Tricyclics Screen Negative (NEGATIVE) Ur Phencyclidine Scrn Negative (NEGATIVE) Ur Amphetamine Screen Negative (NEGATIVE) Urine MDMA Screen Negative (NEGATIVE) U Benzodiazepines Scrn Negative (NEGATIVE) U Cocaine Metab Screen Negative (NEGATIVE) U Marijuana (THC) Screen Negative (NEGATIVE) Ethyl Alcohol (<0.03) % 09/06/19 09/06/19 09/06/19 Range/Units 10:20 10:20 10:20 WBC 6.9 (4.5-12.0) X10-3/uL RBC 4.90 (3.23-5.20) x10(6)uL Hgb 14.0 (11.5-15.5) g/dL Hct 42.9 (30.0-51.3) % MCV 87.6 (80-96) fL MCH 28.5 (27.7-33.6) pg MCHC 32.6 (32.2-35.4) g/dL RDW 13.3 (11.5-15.5) % Plt Count 343 (125-369) X10(3)uL MPV 8.1 (7.4-10.4) fL Neut % (Auto) 51.9 (46-82) % Lymph % (Auto) 38.9 H (13-37) % [place] % (Auto) 6.4 (4-12) % Eos % (Auto) 2 (1.0-5.0) % Baso % (Auto) 1 (0-2) % Neut # (Auto) 3.6 (1.6-8.3) # Lymph # (Auto) 2.7 (0.6-5.0) # [place] # (Auto) 0.4 (0.0-1.3) # Eos # (Auto) 0.1 (0.0-0.8) # Baso # (Auto) 0.1 (0.0-0.2) # Sodium 143 (135-145) mmol/L Potassium 3.6 (3.5-5.3) mmol/L Chloride 103 (100-110) mmol/L Carbon Dioxide 31 (21-32) mmol/L BUN 4 L (7-18) mg/dL Creatinine 1.0 (0.55-1.02) mg/dL Est Cr Clr Drug Dosing TNP Estimated GFR (MDRD) > 60 (>60) BUN/Creatinine Ratio 4.0 L (9-20) Glucose 83 (80-116) mg/dL Calcium 9.0 (8.6-10.2) mg/dL Total Bilirubin 0.5 (0.1-1.3) mg/dL AST 29 H (5-25) IU/L ALT 32 D (12-36) U/L Alkaline Phosphatase 88 (56-112) IU/L Total Protein 7.9 (6.0-8.0) g/dL Albumin 4.8 (3.5-5.2) g/dL Globulin 3.1 g/dL Albumin/Globulin Ratio 1.6 Urine Color (YELLOW) Urine Appearance (CLEAR) Urine pH (5.0-6.5) Ur Specific [place] (1.010-1.025) Urine Protein (NEGATIVE) mg/dL Urine Glucose (UA) (NORMAL) mg/dL Urine Ketones (NEGATIVE) mg/dL Urine Occult Blood (NEGATIVE) Urine Nitrite (NEGATIVE) Urine Bilirubin (NEGATIVE) Urine Urobilinogen (NEGATIVE) mg/dL Ur Leukocyte Esterase (NEGATIVE) Urine HCG, Qual (NEGATIVE) Urine Opiates Screen (NEGATIVE) Ur Oxycodone Screen (NEGATIVE) Ur Propoxyphene Screen (NEGATIVE) Ur Barbituates Screen (NEGATIVE) Ur Tricyclics Screen (NEGATIVE) Ur Phencyclidine Scrn (NEGATIVE) Ur Amphetamine Screen (NEGATIVE) Urine MDMA Screen (NEGATIVE) U Benzodiazepines Scrn (NEGATIVE) U Cocaine Metab Screen (NEGATIVE) U Marijuana (THC) Screen (NEGATIVE) Ethyl Alcohol 0.09 H (<0.03) % Medications Discontinued Medications Generic Name Dose Route Start Last Admin Trade Name Freq PRN Reason Stop Dose Admin Acetaminophen 1,000 mg 09/06/19 10:29 09/06/19 10:46 Tylenol Extra Strength PO 09/06/19 10:30 1,000 mg ONETIME ONE Administration Ibuprofen 800 mg 09/06/19 10:29 09/06/19 10:46 Motrin PO 09/06/19 10:30 800 mg ONETIME ONE Administration Departure - Departure Time of Disposition: 12:00 Disposition: DC/Tfer to Psych Hosp/Unit 65 Condition: Good Clinical Impression: Polysubstance (excluding opioids) dependence, Anxiety, Depressive disorder, Drug abuse, Alcohol abuse - Discharge Information Instructions: Alcohol Use Disorder, Substance Use Disorder and Mental Illness, Major Depressive Disorder, Adult Referrals: Oj Vang MD [Primary Care Provider] - Forms: ED Department Discharge Sepsis Event Note (ED) - Evaluation Sepsis Screening Result: No Definite Risk - Focused Exam Vital Signs: Vital Signs Temp Pulse Resp BP Pulse Ox 09/06/19 11:22 36.6 C 73 16 149/103 H 99 09/06/19 09:26 36.8 C 93 16 144/111 H 99 - My Orders Last 24 Hours: My Active Orders 09/06/19 10:29 CORONAVIRUS COVID-19 WENCESLAO [MOLEC] Stat - Assessment/Plan Last 24 Hours: My Active Orders 09/06/19 10:29 CORONAVIRUS COVID-19 WENCESLAO [MOLEC] Stat
[2019-09-06] MEDS ORDERED: Acetaminophen 500 MG Tab PO ONE (10:29)
[2019-09-06] MEDS ORDERED: Ibuprofen 800 MG Tab PO ONE (10:29)
[2019-09-06] MEDS ORDERED: Diazepam 5 MG Tab PO STA (12:50)
[2019-09-06 15:08] VITALS: BP 159/111; PULSE 81
== END 2019-09-06 14:15 ==
LOC: FB.ED 09:26
DX: F19.20 Other psychoactive substance dependence, uncomplicated (principal); F32.9 Major depressive disorder, single episode, unspecified; F41.9 Anxiety disorder, unspecified; F10.10 Alcohol abuse, uncomplicated; J45.909 Unspecified asthma, uncomplicated; Z79.899 Other long term (current) drug therapy
CPT/HCPCS: 36415; 80053; 80305-QW; 80307; 81003; 81025; 85025; 99285; A9270-GY; U0002

== ENCOUNTER 2020-09-19 16:43 | Emergency (ER) | payer MEDICAID ==
[2020-09-19] MEDS ORDERED: Sodium Chloride 0.9% 10 ML Syringe FLUSH PRN (16:48)
[2020-09-19] MEDS ORDERED: Morphine 2 MG/ML SYRINGE IVPUSH ONE (16:53)
[2020-09-19] MEDS ORDERED: Sodium Chloride 0.9% 1,000 ML IV SCH (17:00)
[2020-09-19] MEDS ORDERED: Ondansetron 4 MG/2 ML SDV IVPUSH STA (17:01)
[2020-09-19] MEDS ORDERED: Iopamidol 755 Mg/ML 100 ML Bottle IV ONE (17:18)
[2020-09-19] MEDS ORDERED: Labetalol 20 MG/4 ML Syringe IVPUSH STA (18:03)
--- NOTE | 2020-09-19 18:24 | EDM.PDOC ---
ED HPI GENERAL MEDICAL PROBLEM - General Chief Complaint: Abdominal Pain Stated Complaint: ABD pain RLQ Time Seen by Provider: 09/19/20 17:00 Source of Information: Reports: Patient History Limitations: Reports: No Limitations - History of Present Illness INITIAL COMMENTS - FREE TEXT/NARRATIVE: Patient presented to the ED from [facility] because of RLQ pain which started at 1300. The pain is sharp,9/10, with associated nausea but no vomiting. There is no diarrhea,constipation, fever or chills. Denies having any urinary symptoms. 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 Other HOT WORKER History: Musculoskeletal History: Reports: Other (See Below) Other Musculoskeletal History: fracxture nose, r hand, r foot x2 Neurological History: Reports: None Psychiatric History: Reports: Bipolar, Depression Other Psychiatric History: on zoloft 150 mg - Infectious Disease History Infectious Disease History: Reports: Chicken Pox - Past Surgical History HEENT Surgical History: Reports: Tonsillectomy Other HEENT Surgeries/Procedures: SINUS SURGERY Respiratory Surgical History: Reports: None Female Surgical History: Reports: Section, Other (See Below) Other Female Surgeries/Procedures: left fallopian tube removed 7 months ago, dx with tubal . Social & Family History - Family History Family Medical History: No Pertinent Family History Cardiac: Reports: Hypertension, [place] Respiratory: Reports: Asthma Other Respiratory Family Hisory: grandpa had emphysema OBGYN: Reports: Other OBGYN Family History: mother and sister had miscarriages Psychiatric: Reports: ADHD, Depression, Psych Hospitalization(s) Oncologic: Reports: Renal - Tobacco Use Tobacco Use Status *Q: Current Every Day Tobacco User Years of Tobacco use: 15 Packs/Tins Daily: 1 - Caffeine Use Caffeine Use: Reports: None - Alcohol Use Days Per Week of Alcohol Use: 3 Number of Drinks Per Day: 1 Total Drinks Per Week: 3 - Recreational Drug Use Recreational Drug Use: No ED ROS GENERAL - Review of Systems Review Of Systems: See Below Constitutional: Reports: No Symptoms HEENT: Reports: No Symptoms Respiratory: Reports: No Symptoms Cardiovascular: Reports: No Symptoms Endocrine: Reports: No Symptoms GI/Abdominal: Reports: Abdominal Pain, Nausea Musculoskeletal: Reports: No Symptoms Skin: Reports: No Symptoms Neurological: Reports: No Symptoms Psychiatric: Reports: No Symptoms Hematologic/Lymphatic: Reports: No Symptoms ED EXAM, GI/ABD - Physical Exam Exam: See Below Exam Limited By: No Limitations General Appearance: Alert, No Apparent Distress Ears: Normal External Exam, Normal Canal Nose: Normal Inspection, Normal Mucosa, No Blood Throat/Mouth: Normal Inspection, Normal Lips, Normal Teeth, Normal Gums Head: Atraumatic, Normocephalic Neck: Normal Inspection, Supple, Non-Tender, Full Range of Motion Respiratory/Chest: No Respiratory Distress, Lungs Clear, Normal Breath Sounds Cardiovascular: Normal Peripheral Pulses, Regular Rate, Rhythm, No Edema, No Gal lop, No JVD, No Murmur, No Rub GI/Abdominal Exam: Normal Bowel Sounds, Soft, Other (tenderness over the RLQ) Back Exam: Normal Inspection, Full Range of Motion Extremities: Normal Inspection, Normal Range of Motion, Non-Tender Neurological: Alert, Oriented, CN II-XII Intact Course - Vital Signs Text/Narrative:: Lab/CT result was reviewed and discussed with patient NS 1 L IV bolus Zofran 4 mg IV x1 Morphine 2 mg IV x1 Toradol 30 mg IV x1 Klor con 40 meq po x1 Last Recorded V/S: Last Vital Signs Temp 36.8 C 09/19/20 18:19 Pulse 75 09/19/20 18:19 Resp 18 09/19/20 18:19 BP 168/104 H 09/19/20 18:19 Pulse Ox 98 09/19/20 18:19 - Orders/Labs/Meds Orders: Active Orders 24 hr Category Date Time Status Abdomen Pelvis w Cont [CT] Stat Exams 09/19/20 17:01 Taken Ketorolac [Toradol] Med 09/19/20 18:29 Stat 30 mg IVPUSH NOW STA Potassium Chloride [Klor-Con M20] Med 09/19/20 18:26 Stat 40 meq PO NOW STA Sodium Chloride 0.9% [Normal Saline] 1,000 ml Med 09/19/20 17:00 Active IV ASDIRECTED Sodium Chloride 0.9% [Saline Flush] Med 09/19/20 16:48 Active 10 ml FLUSH ASDIRECTED PRN Saline Lock Insert [OM.PC] Routine Oth 09/19/20 16:48 Ordered Medication Orders Sodium Chloride (Normal Saline) 1,000 mls @ 999 mls/hr IV ASDIRECTED MIRIAN Last Admin: 09/19/20 17:40 Dose: 999 mls/hr Documented by: AMAURI Sodium Chloride (Sodium Chloride 0.9% 10 Ml Syringe) 10 ml FLUSH ASDIRECTED PRN PRN Reason: Keep Vein Open Labs: Laboratory Tests 09/19/20 09/19/20 09/19/20 Range/Units 16:55 16:55 16:55 WBC (3.0-10.3) x10-3/uL RBC (3.60-5.20) x10(6)uL Hgb (11.4-15.5) g/dL Hct (34.2-48.2) % MCV (76.7-100.5) fL MCH (23.9-33.9) pg MCHC (31.9-34.8) g/dL RDW (12.3-16.5) % Plt Count (151-488) x10(3)uL MPV (7.1-12.4) fL Neut % (Auto) (30.8-76.2) % Lymph % (Auto) (18.4-52.1) % [place] % (Auto) (4.4-15.7) % Eos % (Auto) (0.6-8.1) % Baso % (Auto) (0.2-1.5) % Neut # (Auto) (1.5-6.3) x10-3/uL Lymph # (Auto) (1.0-4.4) x10-3/uL [place] # (Auto) (0.3-1.0) x10-3/uL Eos # (Auto) (0.0-0.8) x10-3/uL Baso # (Auto) (0.0-0.1) x10-3/uL Sodium (135-145) mmol/L Potassium (3.5-5.3) mmol/L Chloride (100-110) mmol/L Carbon Dioxide (21-32) mmol/L BUN (7-18) mg/dL Creatinine (0.55-1.02) mg/dL Est Cr Clr Drug Dosing mL/min Estimated GFR (MDRD) (>60) BUN/Creatinine Ratio (9-20) Glucose (80-116) mg/dL Calcium (8.6-10.2) mg/dL Total Bilirubin (0.1-1.3) mg/dL AST (5-25) IU/L ALT (12-36) U/L Alkaline Phosphatase (56-112) IU/L Total Protein (6.0-8.0) g/dL Albumin (3.5-5.2) g/dL Globulin g/dL Albumin/Globulin Ratio Amylase (25-115) U/L Lipase (73-393) U/L Urine Color Yellow (YELLOW) Urine Appearance Clear (CLEAR) Urine pH 5.0 (5.0-6.5) Ur Specific [place] 1.010 (1.010-1.025) Urine Protein Negative (NEGATIVE) mg/dL Urine Glucose (UA) Normal (NORMAL) mg/dL Urine Ketones Negative (NEGATIVE) mg/dL Urine Occult Blood Moderate H (NEGATIVE) Urine Nitrite Negative (NEGATIVE) Urine Bilirubin Negative (NEGATIVE) Urine Urobilinogen Normal (NEGATIVE) mg/dL Ur Leukocyte Esterase Negative (NEGATIVE) Urine RBC 5-10 H (0-5) Urine WBC 0-5 (0-5) Ur Squamous Epith Cells Moderate H (NS,R,O) Urine Bacteria Few H (NS) Urine HCG, Qual Negative (NEGATIVE) Urine Opiates Screen Negative (NEGATIVE) Ur Oxycodone Screen Negative (NEGATIVE) Ur Propoxyphene Screen Negative (NEGATIVE) Ur Barbituates Screen Negative (NEGATIVE) Ur Tricyclics Screen Negative (NEGATIVE) Ur Phencyclidine Scrn Negative (NEGATIVE) Ur Amphetamine Screen Negative (NEGATIVE) Urine MDMA Screen Negative (NEGATIVE) U Benzodiazepines Scrn Negative (NEGATIVE) U Cocaine Metab Screen Negative (NEGATIVE) U Marijuana (THC) Screen Negative (NEGATIVE) Ethyl Alcohol (<0.03) % 09/19/20 09/19/20 09/19/20 Range/Units 17:08 17:08 17:08 WBC 9.6 (3.0-10.3) x10-3/uL RBC 4.76 (3.60-5.20) x10(6)uL Hgb 14.2 (11.4-15.5) g/dL Hct 42.4 (34.2-48.2) % MCV 89.0 (76.7-100.5) fL MCH 29.8 (23.9-33.9) pg MCHC 33.5 (31.9-34.8) g/dL RDW 13.8 (12.3-16.5) % Plt Count 233 (151-488) x10(3)uL MPV 9.0 (7.1-12.4) fL Neut % (Auto) 67.9 (30.8-76.2) % Lymph % (Auto) 24.6 (18.4-52.1) % [place] % (Auto) 6.2 (4.4-15.7) % Eos % (Auto) 0.7 (0.6-8.1) % Baso % (Auto) 0.6 (0.2-1.5) % Neut # (Auto) 6.5 H (1.5-6.3) x10-3/uL Lymph # (Auto) 2.4 (1.0-4.4) x10-3/uL [place] # (Auto) 0.6 (0.3-1.0) x10-3/uL Eos # (Auto) 0.1 (0.0-0.8) x10-3/uL Baso # (Auto) 0.1 (0.0-0.1) x10-3/uL Sodium 142 (135-145) mmol/L Potassium 3.2 L (3.5-5.3) mmol/L Chloride 101 (100-110) mmol/L Carbon Dioxide 28 (21-32) mmol/L BUN 8 (7-18) mg/dL Creatinine 1.0 (0.55-1.02) mg/dL Est Cr Clr Drug Dosing 83.62 mL/min Estimated GFR (MDRD) > 60 (>60) BUN/Creatinine Ratio 8.0 L (9-20) Glucose 92 (80-116) mg/dL Calcium 9.3 (8.6-10.2) mg/dL Total Bilirubin 1.0 (0.1-1.3) mg/dL AST 41 H D (5-25) IU/L ALT 39 H D (12-36) U/L Alkaline Phosphatase 75 (56-112) IU/L Total Protein 7.7 (6.0-8.0) g/dL Albumin 4.6 (3.5-5.2) g/dL Globulin 3.1 g/dL Albumin/Globulin Ratio 1.5 Amylase 34 (25-115) U/L Lipase 50 L (73-393) U/L Urine Color (YELLOW) Urine Appearance (CLEAR) Urine pH (5.0-6.5) Ur Specific [place] (1.010-1.025) Urine Protein (NEGATIVE) mg/dL Urine Glucose (UA) (NORMAL) mg/dL Urine Ketones (NEGATIVE) mg/dL Urine Occult Blood (NEGATIVE) Urine Nitrite (NEGATIVE) Urine Bilirubin (NEGATIVE) Urine Urobilinogen (NEGATIVE) mg/dL Ur Leukocyte Esterase (NEGATIVE) Urine RBC (0-5) Urine WBC (0-5) Ur Squamous Epith Cells (NS,R,O) Urine Bacteria (NS) Urine HCG, Qual (NEGATIVE) Urine Opiates Screen (NEGATIVE) Ur Oxycodone Screen (NEGATIVE) Ur Propoxyphene Screen (NEGATIVE) Ur Barbituates Screen (NEGATIVE) Ur Tricyclics Screen (NEGATIVE) Ur Phencyclidine Scrn (NEGATIVE) Ur Amphetamine Screen (NEGATIVE) Urine MDMA Screen (NEGATIVE) U Benzodiazepines Scrn (NEGATIVE) U Cocaine Metab Screen (NEGATIVE) U Marijuana (THC) Screen (NEGATIVE) Ethyl Alcohol (<0.03) % 09/19/20 Range/Units 17:08 WBC (3.0-10.3) x10-3/uL RBC (3.60-5.20) x10(6)uL Hgb (11.4-15.5) g/dL Hct (34.2-48.2) % MCV (76.7-100.5) fL MCH (23.9-33.9) pg MCHC (31.9-34.8) g/dL RDW (12.3-16.5) % Plt Count (151-488) x10(3)uL MPV (7.1-12.4) fL Neut % (Auto) (30.8-76.2) % Lymph % (Auto) (18.4-52.1) % [place] % (Auto) (4.4-15.7) % Eos % (Auto) (0.6-8.1) % Baso % (Auto) (0.2-1.5) % Neut # (Auto) (1.5-6.3) x10-3/uL Lymph # (Auto) (1.0-4.4) x10-3/uL [place] # (Auto) (0.3-1.0) x10-3/uL Eos # (Auto) (0.0-0.8) x10-3/uL Baso # (Auto) (0.0-0.1) x10-3/uL Sodium (135-145) mmol/L Potassium (3.5-5.3) mmol/L Chloride (100-110) mmol/L Carbon Dioxide (21-32) mmol/L BUN (7-18) mg/dL Creatinine (0.55-1.02) mg/dL Est Cr Clr Drug Dosing mL/min Estimated GFR (MDRD) (>60) BUN/Creatinine Ratio (9-20) Glucose (80-116) mg/dL Calcium (8.6-10.2) mg/dL Total Bilirubin (0.1-1.3) mg/dL AST (5-25) IU/L ALT (12-36) U/L Alkaline Phosphatase (56-112) IU/L Total Protein (6.0-8.0) g/dL Albumin (3.5-5.2) g/dL Globulin g/dL Albumin/Globulin Ratio Amylase (25-115) U/L Lipase (73-393) U/L Urine Color (YELLOW) Urine Appearance (CLEAR) Urine pH (5.0-6.5) Ur Specific [place] (1.010-1.025) Urine Protein (NEGATIVE) mg/dL Urine Glucose (UA) (NORMAL) mg/dL Urine Ketones (NEGATIVE) mg/dL Urine Occult Blood (NEGATIVE) Urine Nitrite (NEGATIVE) Urine Bilirubin (NEGATIVE) Urine Urobilinogen (NEGATIVE) mg/dL Ur Leukocyte Esterase (NEGATIVE) Urine RBC (0-5) Urine WBC (0-5) Ur Squamous Epith Cells (NS,R,O) Urine Bacteria (NS) Urine HCG, Qual (NEGATIVE) Urine Opiates Screen (NEGATIVE) Ur Oxycodone Screen (NEGATIVE) Ur Propoxyphene Screen (NEGATIVE) Ur Barbituates Screen (NEGATIVE) Ur Tricyclics Screen (NEGATIVE) Ur Phencyclidine Scrn (NEGATIVE) Ur Amphetamine Screen (NEGATIVE) Urine MDMA Screen (NEGATIVE) U Benzodiazepines Scrn (NEGATIVE) U Cocaine Metab Screen (NEGATIVE) U Marijuana (THC) Screen (NEGATIVE) Ethyl Alcohol < 0.03 (<0.03) % Meds: Medications Generic Name Dose Route Start Last Admin Trade Name Freq PRN Reason Stop Dose Admin Sodium Chloride 1,000 mls @ 999 mls/hr 09/19/20 17:00 09/19/20 17:40 Normal Saline IV 999 mls/hr ASDIRECTED MIRIAN Administration Sodium Chloride 10 ml 09/19/20 16:48 Sodium Chloride 0.9% 10 Ml Syringe FLUSH ASDIRECTED PRN Keep Vein Open Discontinued Medications Generic Name Dose Route Start Last Admin Trade Name Freq PRN Reason Stop Dose Admin Iopamidol 95 ml 09/19/20 17:18 Iopamidol 755 Mg/Ml 100 Ml Bottle IV 09/19/20 17:19 . DIRECTED ONE Labetalol HCl 20 mg 09/19/20 18:03 09/19/20 18:13 Labetalol 20 Mg/4 Ml Syringe IVPUSH 09/19/20 18:04 20 mg NOW STA Administration Protocol Morphine Sulfate 2 mg 09/19/20 16:53 09/19/20 17:12 Morphine 2 Mg/Ml Syringe IVPUSH 09/19/20 16:54 2 mg ONETIME ONE Administration Ondansetron HCl 4 mg 09/19/20 17:01 09/19/20 17:07 Ondansetron 4 Mg/2 Ml Sdv IVPUSH 09/19/20 17:02 4 mg NOW STA Administration Departure - Departure Time of Disposition: 18:30 Disposition: Home, Self-Care 01 Condition: Good Clinical Impression: Enteritis, Mittelschmerz phenomenon, Hypokalemia - Discharge Information Instructions: Viral Gastroenteritis, Adult, Mittelschmerz, [id number], Hypokalemia Referrals: Oj Vang MD [Primary Care Provider] - Forms: ED Department Discharge Additional Instructions: Please read discharge instructions on enteritis and ovulation pain, low potassium Take ibuprofen 800 mg every 8 hours as needed for pain Zofran ODT 4 mg every 4 hours as needed for nausea Follow up as needed Sepsis Event Note (ED) - Evaluation Sepsis Screening Result: No Definite Risk - Focused Exam Vital Signs: Vital Signs Temp Pulse Resp BP Pulse Ox 09/19/20 18:19 36.8 C 75 18 168/104 H 98 09/19/20 18:03 36.7 C 82 20 175/116 H 99 09/19/20 16:47 36.9 C 87 20 145/116 H 100 - My Orders Last 24 Hours: My Active Orders 09/19/20 16:48 Sodium Chloride 0.9% [Saline Flush] 10 ml FLUSH ASDIRECTED PRN Saline Lock Insert [OM.PC] Routine 09/19/20 17:00 Sodium Chloride 0.9% [Normal Saline] 1,000 ml IV ASDIRECTED 09/19/20 17:01 Abdomen Pelvis w Cont [CT] Stat 09/19/20 18:26 Potassium Chloride [Klor-Con M20] 40 meq PO NOW STA 09/19/20 18:29 Ketorolac [Toradol] 30 mg IVPUSH NOW STA - Assessment/Plan Last 24 Hours: My Active Orders 09/19/20 16:48 Sodium Chloride 0.9% [Saline Flush] 10 ml FLUSH ASDIRECTED PRN Saline Lock Insert [OM.PC] Routine 09/19/20 17:00 Sodium Chloride 0.9% [Normal Saline] 1,000 ml IV ASDIRECTED 09/19/20 17:01 Abdomen Pelvis w Cont [CT] Stat 09/19/20 18:26 Potassium Chloride [Klor-Con M20] 40 meq PO NOW STA 09/19/20 18:29 Ketorolac [Toradol] 30 mg IVPUSH NOW STA
[2020-09-19] MEDS ORDERED: Potassium Chloride 20 MEQ Tab.ER PO STA (18:26)
[2020-09-19] MEDS ORDERED: Ketorolac 30 MG/ML SDV IVPUSH STA (18:29)
[2020-09-19] MEDS ORDERED: Ondansetron 4 MG Tab.DIS PO ONE (18:39)
[2020-09-19 19:00] VITALS: BP 135/101; PULSE 71
--- NOTE | 2020-09-19 20:30 | CT ---
INDICATION: Right lower quadrant abdominal pain, severe with nausea. CT ABDOMEN AND PELVIS WITH CONTRAST [id number]: Spiral 3.75 mm axial sections were obtained through the abdomen and pelvis with 95 mL Isovue-370 at 2 mm/second with sagittal and coronal reconstructions 09/19/20 and compared with 06/01/19. Total exam DLP was 668.46 mGy-cm. An active infiltrate or effusion was not identified. The heart is normal in size. No pericardial effusion was seen. The liver appeared normal except to note a tiny low density lesion unchanged from the previous in the right lobe seen on axial image 19 of 122. No gallstones were demonstrated. The spleen, pancreas, biliary tree, adrenal glands, kidneys (except to note a tiny low density lesion in the medial cortex of the upper middle pole of the left kidney, unchanged from the previous study), and retroperitoneum appeared normal. The appendix appeared normal visualized on axial image 69 of 122 and coronal images 30 through 42. No evidence of free air was identified. Multiple fluid-filled loops of small bowel are noted with a few air-fluid levels. The appearance raises question of a process such as gastroenteritis. A definite mechanical obstructive process was not identified. Depending upon clinical correlation, follow-up studies may be warranted. There is free fluid in the posterior cul-de-sac which may represent physiologic cyst fluid. Fluid on the previous examination was noted in the posterior cul-de-sac to a greater extent than currently. Etiology is indeterminate, however. The urinary bladder was unremarkable. No fat stranding to suggest peritonitis was identified. No evidence of ventral or inguinal hernia was identified. Hypertrophic degenerative changes and disc disease are noted at lower thoracic- thoracolumbar spine with accentuated dorsal kyphosis due to anterior vertebral body volume loss at what appears to be T11 and T12 to a mild degree. IMPRESSION: 1. Normal appearing appendix - no evidence of appendicitis. 2. Fluid-filled loops of small bowel with air-fluid levels mildly distended that could represent gastroenteritis. A definite mechanical obstructive process was not identified. However, follow-up may be warranted. 3. Moderate amount of free pelvic fluid in the posterior cul-de-sac, etiology indeterminate, but could be related to physiologic ovarian cyst rupture. There is noted a probable follicular cyst at the left ovary which measures approximately 2 cm. Report was called to Dr. Rubalcava at 1814 hours, 09/19/20. [facility]
== END 2020-09-19 19:02 | disposition home or self-care (01) ==
LOC: FB.ED 16:43
DX: K52.9 Noninfective gastroenteritis and colitis, unspecified (principal); E87.6 Hypokalemia; N94.0 Mittelschmerz; Z72.0 Tobacco use; Z88.5 Allergy status to narcotic agent
CPT/HCPCS: 36415; 74177; 80053; 80305-QW; 80307; 81001; 81025; 82150; 83690; 85025; 96374; 96375; 99284; 99284-25; A9270-GY; J1885; J2270; J2405; J3490; J7030

== ENCOUNTER 2021-03-11 08:43 | Emergency (ER) | payer OTHER, MEDICAID ==
[2021-03-11] MEDS ORDERED: Acetaminophen/HYDROcodone 325-5 MG Tab PO STA (09:25)
[2021-03-11] MEDS ORDERED: Ketorolac 30 MG/ML SDV IM STA (09:25)
--- NOTE | 2021-03-11 09:31 | EDM.PDOC ---
ED HPI GENERAL MEDICAL PROBLEM - General Chief Complaint: Headache Stated Complaint: HEADACHES Time Seen by Provider: 03/11/21 08:45 Source of Information: Reports: Patient History Limitations: Reports: No Limitations - History of Present Illness INITIAL COMMENTS - FREE TEXT/NARRATIVE: Patient presented to the ED because of headache which started 2 months. The pain is throbbing over the bi frontal and behind the eyeballs. The pain is 10/10, no associated nausea,vomiting or photophobia. There is no fever, chills or neck stiffness. She saw her provider yesterday and increase her topamax to 100 mg daily, did a Covid which was negative. 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: , 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 WAFER BREAKER History: Musculoskeletal History: Reports: Fracture, Other (See Below) Other Musculoskeletal History: fracxture nose, r hand, r foot x2 Neurological History: Reports: Migraines Psychiatric History: Reports: Bipolar, Depression Other Psychiatric History: on zoloft 150 mg - Infectious Disease History Infectious Disease History: Reports: Chicken Pox, Novel Coronavirus - Past Surgical History HEENT Surgical History: Reports: Adenoidectomy, Naso-Sinus Surgery, Oral Surgery, Tonsillectomy Other HEENT Surgeries/Procedures: SINUS SURGERY, Respiratory Surgical History: Reports: None Female Surgical History: Reports: Section, Other (See Below) Other Female Surgeries/Procedures: left fallopian tube removed 7 months ago, dx with tubal . Social & Family History - Family History Family Medical History: No Pertinent Family History Cardiac: Reports: Hypertension, [place] Respiratory: Reports: Asthma Other Respiratory Family Hisory: grandpa had emphysema OBGYN: Reports: Other OBGYN Family History: mother and sister had miscarriages Psychiatric: Reports: ADHD, Depression, Psych Hospitalization(s) Oncologic: Reports: Renal - Tobacco Use Tobacco Use Status *Q: Current Some Day Tobacco User Years of Tobacco use: 18 Packs/Tins Daily: 0.3 - Caffeine Use Caffeine Use: Reports: Soda - Alcohol Use Days Per Week of Alcohol Use: 2 Number of Drinks Per Day: 6 Total Drinks Per Week: 12 - Recreational Drug Use Recreational Drug Use: No ED ROS GENERAL - Review of Systems Review Of Systems: See Below Constitutional: Reports: No Symptoms HEENT: Reports: No Symptoms Respiratory: Reports: No Symptoms Cardiovascular: Reports: No Symptoms Endocrine: Reports: No Symptoms GI/Abdominal: Reports: No Symptoms : Reports: No Symptoms Musculoskeletal: Reports: No Symptoms Skin: Reports: No Symptoms Neurological: Reports: Headache Psychiatric: Reports: No Symptoms Hematologic/Lymphatic: Reports: No Symptoms Immunologic: Reports: No Symptoms - Physical Exam Exam: See Below Exam Limited By: No Limitations General Appearance: Alert, No Apparent Distress Ears: Normal External Exam, Normal Canal Nose: Normal Inspection, Normal Mucosa, No Blood Throat/Mouth: Normal Inspection, Normal Lips, Normal Teeth Head Exam: Atraumatic, Normocephalic Neck: Normal Inspection, Supple, Non-Tender, Full Range of Motion Respiratory/Chest: No Respiratory Distress, Lungs Clear, Normal Breath Sounds, No Accessory Muscle Use, Chest Non-Tender Cardiovascular: Normal Peripheral Pulses, Regular Rate, Rhythm, No Edema, No Gallop, No JVD, No Murmur, No Rub GI/Abdominal: Normal Bowel Sounds, Soft, Non-Tender, No Organomegaly, No Distention, No Abnormal Bruit Back Exam: Normal Inspection, Full Range of Motion Extremities: Normal Inspection, Normal Range of Motion, Non-Tender, No Pedal Edema, Normal Capillary Refill Course - Vital Signs Text/Narrative:: Lab and Head CT result Toradol 60 mg IM x1 [place] 5 mg, 2 PO x1 Last Recorded V/S: Last Vital Signs Temp 36.3 C 03/11/21 08:45 Pulse 49 L 03/11/21 10:30 Resp 18 03/11/21 10:30 BP 127/85 03/11/21 10:30 Pulse Ox 98 03/11/21 10:30 - Orders/Labs/Meds Orders: Active Orders 24 hr Category Date Time Status Saline Lock Insert [OM.PC] Routine Oth 03/11/21 09:42 Ordered Labs: Laboratory Tests 03/11/21 03/11/21 03/11/21 Range/Units 09:00 09:35 09:35 WBC 6.5 (3.0-10.3) x10-3/uL RBC 4.28 (3.60-5.20) x10(6)uL Hgb 12.4 (11.4-15.5) g/dL Hct 38.0 (34.2-48.2) % MCV 88.6 (76.7-100.5) fL MCH 28.9 (23.9-33.9) pg MCHC 32.6 (31.9-34.8) g/dL RDW 13.6 (12.3-16.5) % Plt Count 239 (151-488) x10(3)uL MPV 8.5 (7.1-12.4) fL Neut % (Auto) 57.1 (30.8-76.2) % Lymph % (Auto) 31.8 (18.4-52.1) % Lee % (Auto) 8.2 (4.4-15.7) % Eos % (Auto) 1.8 (0.6-8.1) % Baso % (Auto) 1.1 (0.2-1.5) % Neut # (Auto) 3.7 (1.5-6.3) x10-3/uL Lymph # (Auto) 2.1 (1.0-4.4) x10-3/uL [place] # (Auto) 0.5 (0.3-1.0) x10-3/uL Eos # (Auto) 0.1 (0.0-0.8) x10-3/uL Baso # (Auto) 0.1 (0.0-0.1) x10-3/uL Sodium 142 (135-145) mmol/L Potassium 4.0 (3.5-5.3) mmol/L Chloride 104 (100-110) mmol/L Carbon Dioxide 30 (21-32) mmol/L BUN 12 (7-18) mg/dL Creatinine 1.0 (0.55-1.02) mg/dL Est Cr Clr Drug Dosing 83.62 mL/min Estimated GFR (MDRD) > 60 (>60) BUN/Creatinine Ratio 12.0 (9-20) Glucose 94 (80-116) mg/dL Calcium 8.8 (8.6-10.2) mg/dL Urine Color Yellow (YELLOW) Urine Appearance Clear (CLEAR) Urine pH 7.0 H (5.0-6.5) Ur Specific [place] 1.010 (1.010-1.025) Urine Protein Negative (NEGATIVE) mg/dL Urine Glucose (UA) Normal (NORMAL) mg/dL Urine Ketones Negative (NEGATIVE) mg/dL Urine Occult Blood Negative (NEGATIVE) Urine Nitrite Negative (NEGATIVE) Urine Bilirubin Negative (NEGATIVE) Urine Urobilinogen Normal (NEGATIVE) mg/dL Ur Leukocyte Esterase Negative (NEGATIVE) Urine WBC 0-5 (0-5) Ur Squamous Epith Cells Occasional (NS,R,O) Urine Bacteria Few H (NS) Meds: Medications Discontinued Medications Generic Name Dose Route Start Last Admin Trade Name Freq PRN Reason Stop Dose Admin Hydrocodone Bitart/Acetaminophen 2 tab 03/11/21 09:25 03/11/21 10:01 Acetaminophen/Hydrocodone 325-5 Mg Tab PO 03/11/21 09:26 2 tab NOW STA Administration Ketorolac Tromethamine 60 mg 03/11/21 09:25 03/11/21 10:01 Ketorolac 30 Mg/Ml Sdv IM 03/11/21 09:26 60 mg NOW STA Administration Sodium Chloride 10 ml 03/11/21 09:42 Sodium Chloride 0.9% 10 Ml Syringe FLUSH ASDIRECTED PRN Keep Vein Open Departure - Departure Time of Disposition: 10:30 Disposition: Home, Self-Care 01 Condition: Good Clinical Impression: Headache - Discharge Information Instructions: Chronic Migraine Headache, [id number] Referrals: Milvia Bergman [employer] C[employer]TER [Primary Care Provider] - Forms: ED Department Discharge Additional Instructions: Please read discharge instructions on chronic headache Take ibuprofen 800 mg with tylenol 1000 mg every 8 hours as needed for headache Follow up as needed Sepsis Event Note (ED) - Evaluation Sepsis Screening Result: No Definite Risk - Focused Exam Vital Signs: Vital Signs Temp Pulse Resp BP Pulse Ox 03/11/21 10:30 49 L 18 127/85 98 03/11/21 08:45 36.3 C 57 L 18 145/97 H 100 - My Orders Last 24 Hours: My Active Orders 03/11/21 09:42 Saline Lock Insert [OM.PC] Routine - Assessment/Plan Last 24 Hours: My Active Orders 03/11/21 09:42 Saline Lock Insert [OM.PC] Routine
[2021-03-11] MEDS ORDERED: Sodium Chloride 0.9% 10 ML Syringe FLUSH PRN (09:42)
--- NOTE | 2021-03-11 10:43 | CT ---
CT HEAD WITHOUT CONTRAST INDICATION: Recurrent headache at the forehead behind eyes x11 days. Light and noise sensitivity. TECHNIQUE: Spiral 3.75 mm axial sections were obtained through the brain without contrast with axial, sagittal and coronal reconstructions 03/11/21 - no comparisons. Total exam DLP was 1244.99 mGy/cm. FINDINGS: Medial maxillary sinus windows are noted compatible with postsurgical change. The paranasal sinuses were otherwise unremarkable as were the mastoid air cells. The cranium appeared to be intact. The orbits appeared to be intact. There is slight shift of midline structures to the right which may represent an anatomic variant. No specific etiology for that shift is seen. The left lateral ventricle is relatively quite prominent compared with the right, which most likely represents an unusual normal variant. The calderon/white matter interface appeared normal with no other ventricular abnormality identified and no focal abnormal areas of density noted - no bleeding site or hematoma was seen. IMPRESSION: 1. No acute intracranial abnormality. 2. Probable normal variant large left lateral ventricle with slight shift to the right of midline structures. 3. 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 Report was called to Dr. Rubalcava at 1005 hours 03/11/21. [id number]
[2021-03-11 11:03] VITALS: BP 127/85; PULSE 49
== END 2021-03-11 10:32 | disposition home or self-care (01) ==
LOC: FB.ED 08:43
DX: R51.9 Headache, unspecified (principal); I10 Essential (primary) hypertension; J45.909 Unspecified asthma, uncomplicated; Z72.0 Tobacco use; Z88.5 Allergy status to narcotic agent; Z79.899 Other long term (current) drug therapy
CPT/HCPCS: 36415; 70450; 80048; 81001; 85025; 96372; 99284-25; A9270-GY; J1885

== ENCOUNTER 2021-04-09 11:39 | Emergency (ER) | payer OTHER, MEDICAID ==
[2021-04-09] MEDS ORDERED: Cyclobenzaprine 10 MG Tab PO STA (11:57)
[2021-04-09] MEDS ORDERED: Ketorolac 30 MG/ML SDV IM ONE (11:57)
[2021-04-09] MEDS ORDERED: Acetaminophen 500 MG Tab PO STA (11:57)
[2021-04-09] MEDS ORDERED: amLODIPine 10 MG Tab PO STA (13:36)
[2021-04-09 20:21] VITALS: BP 179/120; PULSE 78
== END 2021-04-09 13:45 | disposition home or self-care (01) ==
LOC: FB.ED 11:39
DX: S16.1XXA Strain of muscle, fascia and tendon at neck level, initial encounter (principal); I10 Essential (primary) hypertension; Z88.5 Allergy status to narcotic agent; V49.40XA Driver injured in collision with unspecified motor vehicles in traffic accident, initial encounter; Y92.410 Unspecified street and highway as the place of occurrence of the external cause
CPT/HCPCS: 36415; 72125; 72128; 72131; 80053; 85025; 85610; 85730; 96372; 99284; A9270; J1885

== ENCOUNTER 2021-07-01 13:58 | Emergency (ER) | payer OTHER, MEDICAID ==
[2021-07-01] MEDS ORDERED: DIHYDROERGOTAMINE IV ONE (14:00)
[2021-07-01] MEDS ORDERED: Acetaminophen 325 MG Tab PO SCH (14:00)
[2021-07-01] MEDS ORDERED: diphenhydrAMINE 50 MG/ML SDV IVPUSH SCH (14:00)
[2021-07-01] MEDS ORDERED: Ondansetron 4 MG/2 ML SDV IVPUSH SCH (14:00)
[2021-07-01] MEDS ORDERED: Sodium Chloride 0.9% 250 ML IV SCH (14:00)
[2021-07-01] MEDS ORDERED: SODIUM CHLORIDE 0.9% IV ONE (14:00)
[2021-07-01] MEDS ORDERED: Ketorolac 30 MG/ML SDV IVPUSH STA (15:20)
[2021-07-01] MEDS ORDERED: Labetalol 20 MG/4 ML Syringe IVPUSH STA (15:20)
[2021-07-01] MEDS ORDERED: amLODIPine 10 MG Tab PO STA (15:59)
[2021-07-01] MEDS ORDERED: cloNIDine 0.1 MG Tab PO STA (15:59)
[2021-07-01 16:13] VITALS: BP 164/106
[2021-07-01 16:47] VITALS: PULSE 69
[2021-07-01] MEDS ORDERED: SODIUM CHLORIDE 0.9% IV SCH (22:00)
[2021-07-01] MEDS ORDERED: DIHYDROERGOTAMINE IV SCH (22:00)
== END 2021-07-01 17:22 | disposition home or self-care (01) ==
LOC: FB.IVTHER 13:58 → FB.ED 13:58 → EDSTATUS 14:43 → FB.ED 17:22
DX: G43.909 Migraine, unspecified, not intractable, without status migrainosus (principal); I16.9 Hypertensive crisis, unspecified; F32.A Depression, unspecified; Z79.899 Other long term (current) drug therapy; Z88.6 Allergy status to analgesic agent
CPT/HCPCS: 96374; 96375; 99282; 99283-25; A9270-GY; J1885; J3490

== ENCOUNTER 2022-08-03 10:29 | Emergency (ER) | payer MEDICAID, OTHER ==
[2022-08-03 11:09] VITALS: BP 125/88; PULSE 75
[2022-08-03 11:12] LABS: BASOPHILS PERCENT AUTO 0.7 % (0.2-1.5); EOSINOPHILS ABSOLUTE AUTO 0.1 x10-3/uL (0.0-0.8); EOSINOPHILS PERCENT AUTO 2.3 % (0.6-8.1); HEMATOCRIT 37.3 % (34.2-48.2); HEMOGLOBIN 12.4 g/dL (11.4-15.5); LYMPHOCYTES ABSOLUTE AUTO 1.2 x10-3/uL (1.0-4.4); LYMPHOCYTES PERCENT AUTO 23.9 % (18.4-52.1); MEAN CORPUSCULAR HEMOGLOBIN 29.1 pg (23.9-33.9); MEAN CORPUSCULAR HGB CONC 33.4 g/dL (31.9-34.8); MEAN CORPUSCULAR VOLUME 87.4 fL (76.7-100.5); MEAN PLATELET VOLUME 8.7 fL (7.1-12.4); MONOCYTES ABSOLUTE AUTO 0.5 x10-3/uL (0.3-1.0); MONOCYTES PERCENT AUTO 10.3 % (4.4-15.7); NEUTROPHILS ABSOLUTE AUTO 3.1 x10-3/uL (1.5-6.3); NEUTROPHILS PERCENT AUTO 62.8 % (30.8-76.2); PLATELET COUNT,PLT 163 x10(3)uL (151-488); RED BLOOD CELL COUNT 4.27 x10(6)uL (3.60-5.20); RED CELL DISTRIBUTION WIDTH 12.8 % (12.3-16.5)
[2022-08-03 11:17] LABS: BLOOD UREA NITROGEN,BUN 10 mg/dL (7-18); BUN/CREATININE RATIO 12.5 (9-20); CARBON DIOXIDE,CO2 30 mmol/L (21-32); CHLORIDE,CL 106 mmol/L (100-110); CREATININE 0.8 mg/dL (0.55-1.02); EST CRCL DRUG DOSING (CG) 102.58 mL/min; ESTIMATED GFR 98 mL/min (>60); GLUCOSE RANDOM 96 mg/dL (80-116); POTASSIUM,K 4.1 mmol/L (3.5-5.3); SODIUM,NA 142 mmol/L (135-145)
[2022-08-03 11:23] LABS: A/G RATIO 1.2; ALANINE AMINOTRANSFERASE,ALT 20 U/L (12-36); ALBUMIN 3.7 g/dL (3.5-5.2); ALKALINE PHOSPHATASE 69 IU/L (56-112); ASPARTATE AMNIOTRANSFERASE,AST 15 IU/L (5-25); BILIRUBIN TOTAL 0.3 mg/dL (0.1-1.3); PROTEIN TOTAL,TP 6.8 g/dL (6.0-8.0)
[2022-08-03 11:31] LABS: AMORPHOUS SEDIMENT,URINE MODERATE; APPEARANCE,URINE CLOUDY (CLEAR); BACTERIA,URINE FEW (NS); BILIRUBIN,URINE NEGATIVE (NEGATIVE); COLOR,URINE YELLOW (YELLOW); GLUCOSE,URINE NORMAL (NORMAL); KETONES,URINE NEGATIVE (NEGATIVE); LEUKOCYTE ESTERASE,URINE NEGATIVE (NEGATIVE); NITRITE,URINE NEGATIVE (NEGATIVE); OCCULT BLOOD,URINE MODERATE (NEGATIVE); PROTEIN,URINE NEGATIVE (NEGATIVE); RBC,URINE 0-5 (0-5); SQUAMOUS EPITHELIAL CELLS,UR MODERATE (NS,R,O); UROBILINOGEN,URINE NORMAL (NEGATIVE); WBC,URINE 0-5 (0-5)
[2022-08-03] MEDS: traMADol 50 MG Tab PO ONE (11:34)
[2022-08-03] MEDS ORDERED: Sodium Chloride 0.9% 10 ML Syringe FLUSH PRN (11:59)
[2022-08-03] MEDS: Iopamidol 755 Mg/ML 100 ML Bottle IV ONE (12:38)
== END 2022-08-03 13:49 | disposition home or self-care (01) ==
LOC: FB.ED 10:29
DX: N83.01 Follicular cyst of right ovary (principal); I10 Essential (primary) hypertension; J45.909 Unspecified asthma, uncomplicated; Z88.5 Allergy status to narcotic agent; Z86.16 Personal history of COVID-19
CPT/HCPCS: 36415; 74177; 80053; 81001; 83605; 85025; 86140; 99284; Q9967

== ENCOUNTER 2022-10-27 11:53 | Emergency (ER) | payer MEDICAID, OTHER | END 2022-10-27 12:30 | disposition left against medical advice (07) | LOC: FB.ED 11:53 | DX: Z53.21 Procedure and treatment not carried out due to patient leaving prior to being seen by health care provider (principal) ==

== ENCOUNTER 2022-11-30 07:43 | Emergency (ER) | payer OTHER ==
[2022-11-30 08:09] VITALS: BP 119/80; PULSE 89
== END 2022-11-30 08:48 | disposition home or self-care (01) ==
LOC: FB.ED 07:43
DX: S93.401A Sprain of unspecified ligament of right ankle, initial encounter (principal); I10 Essential (primary) hypertension; F17.210 Nicotine dependence, cigarettes, uncomplicated; Z88.5 Allergy status to narcotic agent; Z79.899 Other long term (current) drug therapy; Z86.16 Personal history of COVID-19; X50.1XXA Overexertion from prolonged static or awkward postures, initial encounter
CPT/HCPCS: 73610-RT; 99283

== ENCOUNTER 2025-03-14 17:14 | Emergency (ER) | payer MEDICAID ==
[2025-03-14] MEDS: Sodium Chloride 0.9% 10 ML Syringe FLUSH PRN (17:53)
[2025-03-14 18:13] LABS: PRO B-TYPE NATRIUR PEPT,BNPPRO 319.0 pg/mL (<=125)
[2025-03-14 18:32] VITALS: BP 191/127; PULSE 88
[2025-03-14] MEDS: hydrALAZINE 20 MG/ML SDV IVPUSH ONE (18:47)
[2025-03-14] MEDS: Potassium Chloride 20 MEQ Tab.ER PO ONE (19:44)
== END 2025-03-14 19:20 | disposition home or self-care (01) ==
LOC: FB.ED 17:14
DX: I73.00 Raynaud's syndrome without gangrene (principal); I16.9 Hypertensive crisis, unspecified; I10 Essential (primary) hypertension; L30.9 Dermatitis, unspecified; F17.200 Nicotine dependence, unspecified, uncomplicated; Z86.16 Personal history of COVID-19; Z90.89 Acquired absence of other organs; Z79.899 Other long term (current) drug therapy; Z88.5 Allergy status to narcotic agent
CPT/HCPCS: 36415; 70450; 83880; 84484; 85379; 93005; 93010; 96374; 96375; 99284; J0360; J1920